=== PATIENT | male | born 1970 | race Caucasian/White ===

== ENCOUNTER 2019-04-14 21:15 | Observation (INO) ==
[2019-04-14] MEDS ORDERED: NITROGLYCERIN SL 0.4 MG/TAB TAB SL PRN (21:37)
[2019-04-14] MEDS ORDERED: ASPIRIN CHEW 324 MG PO STA (21:37)
[2019-04-14] MEDS ORDERED: ONDANSETRON INJ 2 MG/ML 2 ML VIAL IV STA (21:37)
[2019-04-14 22:01] LABS: Basophils # (auto) 0.05 K/uL (0-0.2); Basophils % (auto) 0.5 %; Eosinophils # (auto) 0.07 K/uL (0-0.5); Eosinophils % (auto) 0.8 %; Hematocrit (blood only) 44.1 % (42-52); Hemoglobin 15.9 g/dL (14.0-18.0); Immature Granulocytes # (auto) 0.03 K/uL (0.00-0.02); Immature Granulocytes % (auto) 0.3 %; Lymphocytes # (auto) 2.67 K/uL (1.2-3.4); Lymphocytes % (auto) 29.2 %; Mean Corpuscular Hgb Conc 36.1 g/dL (32-36); Mean Corpuscular Volume 91.5 fL (80-100); Mean Platelet Volume 9.5 fL (7.4-10.4); Monocytes # (auto) 0.55 K/uL (0.11-0.59); Neutrophils # (auto) 5.77 K/uL (1.4-6.5); Neutrophils % (auto) 63.2 %; Platelet Count 262 K/uL (130-400); RDW Coefficient of Variation 12.8 % (11.5-14.5); RDW Standard Deviation 42.8 fL (36.4-46.3); Red Blood Count 4.82 M/uL (4.7-6.1); White Blood Count 9.14 K/uL (4.8-10.8)
--- NOTE | 2019-04-14 22:13 | XRay Report ---
SINGLE VIEW CHEST CLINICAL HISTORY: Atypical chest pain. FINDINGS: An AP, portable, upright chest radiograph is obtained. No prior studies are available for c omparison at the time of dictation. The examination is degraded by portable technique and patient rot ation. The heart is top normal for projection. There is mild bibasilar atelectasis. Mild patchy nodul arity suggested throughout both lungs. No lobar consolidation or large pleural effusion is identified . No pneumothorax is seen. The bony thorax is grossly intact. IMPRESSION: Mild patchy nodularity is suggested throughout both lungs. Correlate clinically for evide nce of a mild infectious/inflammatory pneumonitis. Radiographic follow-up to resolution is recommende d. Electronically signed by: Greg Kwon M.D. 04/14/2019 10:12 PM
[2019-04-14 22:14] LABS: iSTAT Creatinine 1.1 mg/dl (0.6-1.3); iSTAT Ionized Calcium 1.2 mmol/l (1.12-1.32); iSTAT Potassium 3.5 mEq/L (3.3-5.0)
[2019-04-14 22:17] LABS: Alanine Aminotransferase 29 U/L (12-78); Albumin Level 4.6 gm/dl (3.4-5.0); Aspartate Aminotransferase 15 U/L (15-37); BUN Creatinine Ratio 10.8 (10-20); Blood Urea Nitrogen 11 mg/dl (7-18); Calcium 9.6 mg/dl (8.5-10.1); Carbon Dioxide 27 mmol/L (21-32); Chloride 105 mmol/L (98-107); Est GFR (African American) 95.7; Est GFR (Non-African American) 82.6; Glucose 112 mg/dl (70-99); Lipase 169 U/L (73-393); Potassium 3.5 mmol/L (3.5-5.1); Sodium 138 mmol/L (136-145)
[2019-04-14 22:22] LABS: Albumin Globulin Ratio 1.3 (0.9-2); Alkaline Phosphatase 74 U/L (45-117); Bilirubin,Total 0.4 mg/dl (0.2-1); Globulin 3.6 gm/dl (2.5-4.0); Total Protein 8.2 gm/dl (6.4-8.2); Troponin I < 0.015 ng/ml (0-0.045)
[2019-04-14] MEDS ORDERED: NITROGLYCERIN 2% OINTMENT 30GM TUBE EXT ONE (22:28)
[2019-04-14] MEDS ORDERED: OPTIRAY 320 125ml IV PRN (23:05)
--- NOTE | 2019-04-14 23:34 | Emergency Department Note ---
History of Present Illness General Chief complaint: Chest Pain Stated complaint: CHEST PAIN Time Seen by Provider: 04/14/19 21:30 History of Present Illness Maximum Pain Intensity: 7 This 49-year-old presents to the ER complaining of chest pain Location: Left-sided chest Quality: Pressure Severity: Moderate Duration: This afternoon Timing: Started while at work Context: Symptoms got worse and patient came in Modifying factors: better with rest; worse with activity Patient also claims of nausea, vomiting and diaphoresis with the pain that radiated down his left arm. Patient smokes. He has a history of DVT. Patient denies abdominal pain, leg pain or swelling, fevers, flulike illness. Home Medications Home Medications Medication Instructions Recorded Confirmed Type ibuprofen 400 mg PO Q6H PRN 04/14/19 04/14/19 History Allergies Allergy/AdvReac Type Severity Reaction Status Date / Time Penicillins Allergy Mild Unknown Unverified 04/14/19 23:04 Past Med/Surg History Medical History DVT (deep venous thrombosis) Social History Feels Safe at Home: Yes Smoking Status: Current every day smoker Review of Systems All systems reviewed & are unremarkable except as noted in HPI & below Physical Exam Vital Signs Vital Signs - 24 hr 04/14/19 21:25 04/14/19 21:59 04/14/19 23:09 Temperature 36.6 C Temperature Source Oral Sepsis Recent Fever Within 48 Hours No Sepsis New/Unexplained Change in Mental Status No Sepsis Action Taken by Nursing No Action Required Pulse Rate 89 Pulse Rate [Apical] 76 Respiratory Rate 18 18 Blood Pressure 136/78 Blood Pressure [Left Arm] 161/74 H Blood Pressure Mean 97 Blood Pressure Mean [Left Arm] 103 Blood Pressure Position Sitting Pulse Oximetry 98 98 98 Oxygen Delivery Method Room Air Room Air Room Air VITALS: Vitals are noted on the nurse's note and reviewed by myself. Vital signs stable. GENERAL: Pleasant male, in no acute distress, nondiaphoretic, well-developed well-nourished. SKIN: The skin was without rashes, erythema, edema, or bruising. There is no tenting of the skin. Capillary reflex less than 2 seconds. HEAD: Normocephalic atraumatic. EARS: External auditory canals clear EYES: Pupils equal round and reactive to light and accommodation. Conjunctivae without injection, sclerae without icterus. Extraocular movements intact. NOSE: Patent, turbinates without inflammation or discharge. MOUTH: Mucous membranes moist. Pharynx without erythema or exudate. Uvula midline. Airway patent. Tongue does not deviate. NECK: Supple without nuchal rigidity. No lymphadenopathy. No thyromegaly. Cervical spine is nontender. No JVD. HEART: Regular rate and rhythm LUNGS: Clear to auscultation bilaterally without wheezes, rales or rhonchi. No retractions or accessory muscle use. ABDOMEN: Positive bowel sounds x 4. Normal tympanic percussion. Soft, nontender, without masses or organomegaly. Mayers sign negative. No guarding or rebound tenderness. No CVA tenderness MUSCULOSKELETAL: No muscle atrophy, erythema, or edema noted. NEURO: Patient was alert and oriented to person place and time. Normal sensation to light and sharp touch. No focal neurological deficits. Course Administered Medications Ioversol (Optiray 320 125ml) 118 ml IV ONCE PRN PRN Reason: Interaction Checking Stop: 04/18/19 23:04 Last Admin: 04/14/19 23:05 Dose: 1 ml Documented by: [id number] Nitroglycerin (Nitrostat) 0.4 mg SL UD PRN PRN Reason: Chest Pain Stop: 05/14/19 21:36 Last Admin: 04/14/19 21:55 Dose: 0.4 mg Documented by: [id number] Discontinued Medications Aspirin (Aspirin) 324 mg PO NOW STA Stop: 04/14/19 21:38 Last Admin: 04/14/19 21:55 Dose: 324 mg Documented by: [id number] Nitroglycerin (Nitro-Bid 2%) 0.5 inch EXT NOW ONE Stop: 04/14/19 22:29 Last Admin: 04/14/19 22:40 Dose: 0.5 inch Documented by: [id number] Ondansetron HCl (Zofran) 4 mg IV NOW STA Stop: 04/14/19 21:38 Last Admin: 04/14/19 21:55 Dose: 4 mg Documented by: [id number] Medical Decision Making Medical Records Attestation: I reviewed the patient's medical records. Home Medications Current Medication List: was personally reviewed by me Laboratory Data Attestation: I reviewed the patient's lab results. Result diagrams: 04/14/19 21:45 04/14/19 21:45 Lab Results 04/14/19 04/14/19 04/14/19 Range/Units 21:45 21:45 22:02 WBC 9.14 (4.8-10.8) K/uL RBC 4.82 (4.7-6.1) M/uL Hgb 15.9 (14.0-18.0) g/dL POC Hgb 16.0 (14.0-18.0) g/dl Hct 44.1 (42-52) % POC Hct 47 (42-52) % MCV 91.5 (80-100) fL MCH 33.0 (25-34) pg MCHC 36.1 H (32-36) g/dL RDW Std Deviation 42.8 (36.4-46.3) fL RDW Coeff of Eliel 12.8 (11.5-14.5) % Plt Count 262 (130-400) K/uL MPV 9.5 (7.4-10.4) fL Immature Gran % (Auto) 0.3 % Neut % (Auto) 63.2 % Lymph % (Auto) 29.2 % Guthrie % (Auto) 6.0 % Eos % (Auto) 0.8 % Baso % (Auto) 0.5 % Immature Gran # (Auto) 0.03 H (0.00-0.02) K/uL Neut # (Auto) 5.77 (1.4-6.5) K/uL Lymph # (Auto) 2.67 (1.2-3.4) K/uL Guthrie # (Auto) 0.55 (0.11-0.59) K/uL Eos # (Auto) 0.07 (0-0.5) K/uL Baso # (Auto) 0.05 (0-0.2) K/uL POC D-Dimer (0-450) ng/mlFEU POC Sodium 141 (135-144) mEq/L Sodium 138 (136-145) mmol/L POC Potassium 3.5 (3.3-5.0) mEq/L Potassium 3.5 (3.5-5.1) mmol/L POC Chloride 103 (101-112) mEq/L Chloride 105 (98-107) mmol/L Carbon Dioxide 27 (21-32) mmol/L POC Total CO2 27 (24-31) mEq/l Anion Gap 7.0 (3-11) POC Anion Gap 15.0 L (16-25) mmol/L POC BUN 11 (7-18) mg/dl BUN 11 (7-18) mg/dl Creatinine 1.06 (0.6-1.4) mg/dl POC Creatinine 1.1 (0.6-1.3) mg/dl Est Cr Clr Drug Dosing Not Reportable Est GFR ( Amer) 95.7 Est GFR (Non-Af Amer) 82.6 BUN/Creatinine Ratio 10.8 (10-20) Glucose 112 H (70-99) mg/dl POC Glucose (other) 112 H (70-99) mg/dl Calcium 9.6 (8.5-10.1) mg/dl POC Ioniz Calcium Russel 1.20 (1.12-1.32) mmol/l Total Bilirubin 0.4 (0.2-1) mg/dl AST 15 (15-37) U/L ALT 29 (12-78) U/L Alkaline Phosphatase 74 (45-117) U/L POC Troponin I (0-0.045) ng/ml Troponin I < 0.015 (0-0.045) ng/ml Total Protein 8.2 (6.4-8.2) gm/dl Albumin 4.6 (3.4-5.0) gm/dl Globulin 3.6 (2.5-4.0) gm/dl Albumin/Globulin Ratio 1.3 (0.9-2) Lipase 169 (73-393) U/L 04/14/19 Range/Units 22:02 WBC (4.8-10.8) K/uL RBC (4.7-6.1) M/uL Hgb (14.0-18.0) g/dL POC Hgb (14.0-18.0) g/dl Hct (42-52) % POC Hct (42-52) % MCV (80-100) fL MCH (25-34) pg MCHC (32-36) g/dL RDW Std Deviation (36.4-46.3) fL RDW Coeff of Eliel (11.5-14.5) % Plt Count (130-400) K/uL MPV (7.4-10.4) fL Immature Gran % (Auto) % Neut % (Auto) % Lymph % (Auto) % Guthrie % (Auto) % Eos % (Auto) % Baso % (Auto) % Immature Gran # (Auto) (0.00-0.02) K/uL Neut # (Auto) (1.4-6.5) K/uL Lymph # (Auto) (1.2-3.4) K/uL Guthrie # (Auto) (0.11-0.59) K/uL Eos # (Auto) (0-0.5) K/uL Baso # (Auto) (0-0.2) K/uL POC D-Dimer 286 (0-450) ng/mlFEU POC Sodium (135-144) mEq/L Sodium (136-145) mmol/L POC Potassium (3.3-5.0) mEq/L Potassium (3.5-5.1) mmol/L POC Chloride (101-112) mEq/L Chloride (98-107) mmol/L Carbon Dioxide (21-32) mmol/L POC Total CO2 (24-31) mEq/l Anion Gap (3-11) POC Anion Gap (16-25) mmol/L POC BUN (7-18) mg/dl BUN (7-18) mg/dl Creatinine (0.6-1.4) mg/dl POC Creatinine (0.6-1.3) mg/dl Est Cr Clr Drug Dosing Est GFR ( Amer) Est GFR (Non-Af Amer) BUN/Creatinine Ratio (10-20) Glucose (70-99) mg/dl POC Glucose (other) (70-99) mg/dl Calcium (8.5-10.1) mg/dl POC Ioniz Calcium Russel (1.12-1.32) mmol/l Total Bilirubin (0.2-1) mg/dl AST (15-37) U/L ALT (12-78) U/L Alkaline Phosphatase (45-117) U/L POC Troponin I < 0.03 (0-0.045) ng/ml Troponin I (0-0.045) ng/ml Total Protein (6.4-8.2) gm/dl Albumin (3.4-5.0) gm/dl Globulin (2.5-4.0) gm/dl Albumin/Globulin Ratio (0.9-2) Lipase (73-393) U/L Imaging Data Attestation: I personally reviewed and interpreted this imaging study as follows: MDM Narrative Prior records/ancillary studies reviewed. Triage Nursing notes reviewed. Additional history obtained from family. The patient's history was concerning for chest pain. Differential diagnosis: Etiologies such as cardiac ischemia, aortic dissection, pulmonary embolism, pneumonia, pneumothorax, musculoskeletal, infections, pericarditis, myocarditis, esophageal rupture, gastrointestinal, as well as others were entertained. Physical examination: As above. ER treatment provided: Zofran, nitroglycerin, aspirin On reassessment the patient felt better. Diagnostic interpretation by me: The electrocardiogram was ordered for chest pain EKG: Normal sinus, normal intervals, ST depression in the anterior lateral leads, no old EKG. Impression normal sinus rhythm with ST depression anterolateral leads interpreted by myself I think arrhythmia is unlikely. EKG shows normal sinus rhythm with no interval abnormalities such as QT prolongation or WPW. There are no findings to suggest Brugada syndrome. Cardiac monitoring in the emergency department reveals no tachycardic or bradycardic dysrhythmia. Hypertrophic cardiomyopathy was considered but there are no clear historical elements pointing toward this. EKG is not suggestive. The QRS voltage is not extremely large and there are no suggestive Q waves. The labs revealed negative troponin Imaging studies: CTA CHEST: No evidence for PE or other acute intrathoracic process. Radiologist: Vinny Robert M.D. HEART SCORE: Hx: high/mod/low suspicion: 1 ECG: ST depression/nonspecific changes/normal: 1 Age: Greater than 65/45-64/less than 45: 1 Risk factors: (Hypertension, hyperlipidemia, diabetes, coronary disease, tobacco use, cocaine use): 1 Troponin: Greater than 2 times normal limits/1-2 times normal limits/normal: 0 Total: 4 Consultation: A consultation was placed with the hospitalist, Dr Marquez. The case was discussed and diagnostics were reviewed. The patient was evaluated in the ER for further treatment. Exam and history seem consistent with chest pain with concerns for cardiac in etiology. Heart score is 4. He had an abnormal EKG. First troponin is negative. Patient is pain-free after nitroglycerin. Nitropaste was applied. Repeat EKG was unchanged. Patient is agreeable to treatment plan of admission. Medicine was consulted. By the evaluation outlined above emergent etiologies such as aortic dissection, pulmonary embolism, pneumonia, pneumothorax, infections, pericarditis, myocarditis, gastrointestinal, as well as others were deemed relatively unlikely. The pt informed about the findings as listed above. All questions were answered and pleased with the treatment. Case reviewed with my attending The chart was completed utilizing mywaves Speech voice recognition software. Grammatical errors, random word insertions, pronoun errors, and incomplete sentences are an occassional consequence of this system due to software limitations, ambient noise, and hardware issues. Any formal questions or concerns about the content, text, or information contained within the body of this dictation should be directly addressed to the physician assistant property manager for c larification. Impression & Plan Atypical chest pain Discharge Plan Visit Data Chief Complaint: Chest Pain Stated Complaint: CHEST PAIN ED Provider: Dorian Allen ED Midlevel Provider: Shayy Crespo Discharge Problem: Atypical chest pain Patient Disposition: Being Evaluated by Hospitalist Condition: Good Forms Stand Alone Forms: Call Back Authorization, [facility] Prescriptions Prescriptions: No Action ibuprofen 200 mg Tablet 400 mg PO Q6H PRN (Reason: Outbreak) RF: 0 Referrals Referrals: Nikolas Scruggs MD [Primary Care Provider] -
[2019-04-15] MEDS ORDERED: ACETAMINOPHEN 325 MG TAB PO PRN (01:35)
[2019-04-15] MEDS ORDERED: SODIUM CHLORIDE 0.9% 1000ML 1,000 ML IV SCH (01:35)
[2019-04-15] MEDS ORDERED: ONDANSETRON INJ 2 MG/ML 2 ML VIAL IV PRN (01:35)
[2019-04-15] MEDS ORDERED: NITROGLYCERIN SL 0.4 MG/TAB TAB SL PRN (01:35)
[2019-04-15 02:48] LABS: Chol HDL Ratio 3; Cholesterol 170 mg/dl (0-200); HDL Cholesterol 61 mg/dl; LDL Cholesterol Calculated 89 mg/dl; Triglycerides 101 mg/dl (0-150); Troponin I < 0.015 ng/ml (0-0.045); VLDL Cholesterol 20 mg/dl
--- NOTE | 2019-04-15 03:33 | History and Physical Report ---
DATE OF ADMISSION: 04/15/2019 CHIEF COMPLAINT: Chest pain. HISTORY OF PRESENT ILLNESS: This 49-year-old male with past medical history significant for thrombophlebitis of superficial veins of the left lower extremity diagnosed in July 2018, was on Xarelto for July to January, comes with chest pain. Yesterday at work around 5:00 p.m had abdominal pain went home and at 8:00 p.m. in the night, he started to notice left sided chest pain, pressure like feeling and he also had left arm numb, 7/10 in severity, also some nausea, no sweating, no dizziness, no shortness of breath, came to the ER and received nitro and aspirin and the pain is gone now. Currently resting comfortably and hemodynamically stable. He says otherwise he is active, he walks and climbs steps without any issues. Denies any headache, no dizziness, no blurred visions, no earache, no runny nose, no sore throat, no difficulty swallowing. Appetite is okay. No cough, no fever, no chills, no abdominal pain. Normal bowel and bladder movements. No blood in the stools or black stools. No hematuria or burning micturition, no swelling in the legs, no rash. ALLERGIES: PENICILLINS. PAST MEDICAL HISTORY: As mentioned above. PAST SURGICAL HISTORY: None. MEDICATIONS: Currently, none. FAMILY HISTORY: Father had lung cancer. Mother had tumor near the eye and diabetes. SOCIAL HISTORY: Single, former smoker, quit in January 2018, smoked 0.1 pack a day for 5 years. Chews tobacco. Alcohol socially. No drug use. REVIEW OF SYMPTOMS: As per HPI. Rest of review of systems is negative. PHYSICAL EXAMINATION: GENERAL: The patient is of moderate built, not in acute distress. VITAL SIGNS: Temperature 36.6, pulse 72, respiratory rate 18, blood pressure 132/77, oxygen 97% room air. HEENT: No pallor, no icterus. Pupils equal, round, and reactive to light. NECK: No JVD, no neck masses, no carotid bruit. CARDIOVASCULAR: S1, S2 heard, regular rate and rhythm, no murmur, no gallop. RESPIRATORY SYSTEM: Normal AP diameter. No accessory muscle use. No wheezing, no crackles. ABDOMEN: Soft, bowel sounds present, nontender. No distention. CENTRAL NERVOUS SYSTEM: Cranial nerves II-XII grossly intact. Nonfocal. EXTREMITIES: No edema, no erythema. LABORATORY DATA: WBC 9.1, hemoglobin 15.8, hematocrit 44.1, platelets 262. Point of care D-dimer 286. Sodium 138, potassium 3.5, chloride 105, bicarbonate 27, BUN 11, creatinine 1.06, serum glucose 112, calcium 9.6, POC ionized calcium 1.2, total bilirubin 0.4, AST 15, ALT 29, alkaline phosphatase 74. Troponin I less than 0.015. Lipase 169. Chest x-ray, mild patchy nodular densities throughout both lungs. CT of the chest, no acute findings seen. EKG: Normal sinus rhythm with rate of 93, nonspecific ST changes seen. ASSESSMENT AND PLAN: This 49-year-old male who presents with chest pain. 1. Chest pain, risk factor of age. Initial troponin and EKG unremarkable. We will observe in tele floor. Serial cardiac enzymes, echo. We will keep him n.p.o. until seen by cardiology. If the repeat EKGs and troponins negative, possible stress test in a.m. as per cardiology. We will also follow his fasting lipid profile. 2. History of superficial thrombophlebitis, left leg, status post treatment with Xarelto from July to January. A CT of the chest done in the ER is unremarkable. Follow the official report. 3. Deep venous thrombosis prophylaxis, sequential compression devices. 4. Disposition: Observation in tele floor. Expect discharge home and follow with his family doctor. Level 1 full code. MTDD
--- NOTE | 2019-04-15 06:34 | CT Scan Report ---
CT ANGIOGRAM OF THE CHEST CLINICAL HISTORY: Atypical chest pain. Possible pulmonary embolism. ABNORMAL CHEST X-RAY COMPARISON STUDY: Chest x-ray dated 04/14/2019 TECHNIQUE: Following the IV administration of 118 mL of Optiray-320, CT angiogram of the thorax was p erformed from the thoracic inlet to the lung bases utilizing the pulmonary embolus protocol. Images a re reviewed in the axial, sagittal, and coronal planes. IV contrast was administered without complica tion. MIP imaging was performed. A dose lowering technique was utilized adhering to the principles o f ALARA. CT DOSE: 626.32 mGy.cm FINDINGS: No pathologically enlarged axillary mediastinal or hilar lymph nodes were visualized. There was no evidence of thoracic aortic dilatation. There were no pulmonary artery filling defects to indicate acute pulmonary embolism. No pleural effusions are visualized. There was no evidence of focal pulmonary consolidation. IMPRESSION: 1. No acute intrathoracic findings 2. No evidence of acute pulmonary embolism 3. No evidence of focal pulmonary consolidation Electronically signed by: Caleb June M.D. 04/15/2019 6:33 AM
[2019-04-15] MEDS ORDERED: ASPIRIN 81 MG ECTAB PO SCH (09:00)
--- NOTE | 2019-04-15 10:13 | Cardiology Consultation ---
Date of Consultation April 15, 2019 Assessment & Plan (1) Chest discomfort: Mr. Longo's description of his discomfort is atypical for active ischemia. His EKG was unremarkable and cardiac enzymes were negative x3. He underwent an exercise stress echocardiogram where he completed 10 and half minutes on Sea protocol without reproduction of his chest discomfort. There are no ischemic EKG changes or inducible wall motion abnormalities. I do not see any cardiac component to his chest discomfort and no further cardiac testing is necessary. No cardiac follow-up was necessary and is okay to discharge patient home from a cardiac standpoint. (2) GERD (gastroesophageal reflux disease): Would recommend a 2-week course of Prevacid 15 mg daily for likely GERD symptoms. Follow-up with PCP is also recommended. History of Present Illness Attending Physician: Ana Aguilar MD History of Present Illness It was my pleasure it was my pleasure Mr. Longo in consultation today April 15, 2019. He is a very pleasant 49-year-old gentleman who presented to [facility] emergency department on 04/14/2019 with a complaint of chest pain. He states that he was going through his normal daily routine when he arrived at work on the and developed abdominal discomfort. He described as a dull achy sensation in his left upper quadrant. He states that he first noticed the discomfort when he was walking around but not overly exerting himself. The discomfort persisted through the shift he became concerned and went home. Upon arriving home he started noticing discomfort was radiating up into his chest. In his chest he described it more of a sharp stabbing sensation. He then noticed that his left shoulder and left arm seem to be a little numb and tingly. His also commented that he seemed a little lightheaded. At that time he was brought into the emergency department. Upon arrival he was given sublingual nitroglycerin which resolved the discomfort. He denies any previous similar episodes. He denies any recurrences overnight and currently feels well at rest. He denies eating anything out of the ordinary lately and states he has not had spicy food in several days now. Allergies Allergy/AdvReac Type Severity Reaction Status Date / Time Penicillins Allergy Mild Unknown Unverified 04/14/19 23:04 Home Medications Home Medications Medication Instructions Recorded Confirmed Type ibuprofen 400 mg PO Q6H PRN 04/14/19 04/14/19 History Patient History Medical History DVT (deep venous thrombosis) Family History Father Heart disease Early 50s Social History Preferred Language: Welsh Alarm Security Or Surveillance Monitor Required: No Beliefs That Will Affect Care: None Current Living Situation: Spouse Feels Safe at Home: Yes Safety Concerns: Feels Safe At This Time Smoking Status: Light tobacco smoker Tobacco Type: cigarettes ; Do You Dip or Chew Tobacco: Yes ; Tobacco Cessation Education Requested by Patient: Yes Hx Alcohol Use: Yes Hx Substance Use: No Review of Systems Review of Systems: All systems reviewed & are unremarkable except as noted in HPI & below Physical Exam Physical Exam: Physical Exam: General: Awake, alert and oriented x 3. No acute distress. HEENT: Normocephalic, atraumatic. Pupils equal, round and reactive to light and accommodation. Extraocular muscles are intact. Anicteric sclera. Moist mucous membranes. Neck: No JVD. No bruit. Cardiovascular: Regular. No S-4. Normal S-1 and S-2. No S-3. No murmurs, rubs or gallops. Pulmonary: Clear to auscultation bilaterally. No rales, rhonchi, or wheezing. Abdomen: Bowel sounds x 4, soft. No rebound, guarding or tenderness. No organomegaly. Extremities: No clubbing, cyanosis or edema. +2 pedal pulses bilaterally. Skin: Warm and dry. Results & Data Vital Signs (Past 12 Hours) Vital Signs Temp Pulse Pulse Pulse Resp BP BP 04/15/19 08:41 58 L 04/15/19 07:39 36.5 C 56 L 18 108/63 04/15/19 03:44 36.4 C L 66 15 109/57 L 04/15/19 02:12 78 04/15/19 01:36 36.6 C 76 18 152/73 H 04/15/19 01:18 81 18 120/74 04/15/19 00:09 72 18 132/77 04/14/19 23:09 76 18 161/74 H Pulse Ox 04/15/19 08:41 04/15/19 07:39 97 04/15/19 03:44 96 04/15/19 02:12 04/15/19 01:36 98 04/15/19 01:18 99 04/15/19 00:09 97 04/14/19 23:09 98
[2019-04-15] MEDS ORDERED: LANSOPRAZOLE 15 MG SOLTAB PO SCH (10:15)
--- NOTE | 2019-04-15 10:51 | Discharge Summary ---
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 Yesterday at work around 5:00 p.m had abdominal pain went home and at 8:00 p.m. in the night, he started to notice left sided chest pain, pressure like feeling and he also had left arm numb, 7/10 in severity, also some nausea, no sweating, no dizziness, no shortness of breath, came to the ER and received nitro and aspirin and the pain is gone now. Currently resting comfortably and hemodynamically stable. He says otherwise he is active, he walks and climbs steps without any issues. Denies any headache, no dizziness, no blurred visions, no earache, no runny nose, no sore throat, no difficulty swallowing. Appetite is okay. No cough, no fever, no chills, no abdominal pain. Normal bowel and bladder movements. No blood in the stools or black stools. No hematuria or burning micturition, no swelling in the legs, no rash. Admission Exam Per Admitting Provider GENERAL: The patient is of moderate built, not in acute distress. VITAL SIGNS: Temperature 36.6, pulse 72, respiratory rate 18, blood pressure 132/77, oxygen 97% room air. HEENT: No pallor, no icterus. Pupils equal, round, and reactive to light. NECK: No JVD, no neck masses, no carotid bruit. CARDIOVASCULAR: S1, S2 heard, regular rate and rhythm, no murmur, no gallop. RESPIRATORY SYSTEM: Normal AP diameter. No accessory muscle use. No wheezing, no crackles. ABDOMEN: Soft, bowel sounds present, nontender. No distention. CENTRAL NERVOUS SYSTEM: Cranial nerves II-XII grossly intact. Nonfocal. EXTREMITIES: No edema, no erythema. Principal Diagnosis Chest Pain Discharge Exam Constitutional WD/WN, vitals as above well nourished and + acute distress; not ill appearing Eyes PERRL, conjunctivae normal, anicteric sclerae ENMT external ear and nose normal, oropharynx normal Neck trachea midline, no thyromegaly Respiratory normal respiratory effort, lungs clear to auscultation Cardiovascular RRR, no murmur, no edema Rate/Rhythm: regular rhythm Heart Sounds: normal S1 and normal S2 Extremities: no edema Chest (Breasts) Chest: normal inspection of chest Gastrointestinal (Abdomen) normal bowel sounds, soft, nontender, no hepatosplenomegaly Musculoskeletal no cyanosis or clubbing, extremities motor strength 5/5 Neurologic PERRL, EOMI, accommodation nl, no face palsy, no dysarthria Psychiatric A+Ox3, euthymic affect Discharge Data Allergies Allergy/AdvReac Type Severity Reaction Status Date / Time Penicillins Allergy Mild Unknown Unverified 04/14/19 23:04 Consultations 04/14/19 23:28 ED Decision to Admit Stat 04/15/19 08:00 Consult Cardiology Routine Ordered Studies 04/14/19 22:28 CT angio chest PE protocol Stat 1. No acute intrathoracic findings 2. No evidence of acute pulmonary embolism 3. No evidence of focal pulmonary consolidation Hospital Course (1) Atypical chest pain: Chest pain was atypical Resolved EKG was normal Exercise echo was unremarkable Troponins were negative Patient was counselled on need to quit smoking. Follow up with PCP (2) GERD (gastroesophageal reflux disease): Reported abdominal pain associated with the chest pain. 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 Will discharge on lansoprazole Follow up with PCP Total Time Total Time Spent Total Time Spent (In Minutes): 20 minutes Total Time Includes: Examination of the Patient, Discharge Planning and Medication Reconciliation Discharge Plan Discharge Items Patient Disposition: Home - Self-Care Reason For Visit: CHEST PAIN Discharge Diagnosis: Atypical Chest Pain GERD (Gastroesophageal Reflux Disease) Condition on Discharge: Good Activity: Resume your previous activity Non-emergency contact: Primary Care Provider Call non-emergency contact if: your symptoms worsen Follow-up/Referrals: Nikolas Scruggs MD [Primary Care Provider] - Diet: Regular Addtl Attending Provider Instructions: Mr Longo. You came to the hospital complaining of chest pain that started yesterday evening with abdominal pain. Pain was associated with left arm numbness. This resolved on presentation. You had EKG and stress test which were normal Please quit smoking. You are being discharged with lansoprazole. Please take this as prescribed. Follow up with your Primary Doctor. It was a pleasure taking care of you Pending Studies at Discharge: No Visit Report Forms: Smoking Cessation Stand-Alone Forms: Call Back Authorization, My [facility] Medications and DC Order Prescriptions: New lansoprazole [Prevacid SoluTab] 15 mg Tablet,Disintegrat, Delay Rel 15 mg PO QAM 14 Days Qty: 14 RF: 0 Discontinued ibuprofen 200 mg Tablet 400 mg PO Q6H PRN (Reason: Outbreak) RF: 0 Discharge Orders: Discharge Order (Routine); Ordered 04/15/19 Ordered By: Ana Aguilar Admission Data Admit Date/Time: 04/15/19 01:02 Attending Provider: Ana Aguilar I. Admit Provider: Ravin Marquez Primary Care Provider: Nikolas Scruggs Other Providers: Ravin Marquez ; Matthew Robison ; Leroy Donis ; Brad Prajapati ; Jose Mosqueda ; Sushil Ramirez ; Cameron Thornton ; Nohemi Khan ; Rhea Naylor
== END 2019-04-15 11:52 | disposition home or self-care (01) ==
LOC: ED 21:15 → 2S 21:15